=== PATIENT | male | born 1965 | race Caucasian/White ===

== ENCOUNTER → 2017-04-18 | Outpatient (CLI) | payer OTHER ==
[~2017-04-18] MED LIST: BISO5TAB3 PO; HYDR-5688 PO
== END | disposition home or self-care (01) ==
LOC: C.CPL 14:37
PROVIDERS: ATTEND Physician Assistant
DX: Z01.818 Encounter for other preprocedural examination (principal); S46.112A Strain of muscle, fascia and tendon of long head of biceps, left arm, initial encounter; X58.XXXA Exposure to other specified factors, initial encounter

== ENCOUNTER → 2017-04-19 | Day surgery (SDC) | payer OTHER ==
[2017-04-18 14:14] VITALS: Ht 180.3 cm; Wt 95.5 kg
--- NOTE | 2017-04-18 16:08 | HISTORY & PHYSICAL EXAMINATION ---
DATE OF ADMISSION: 04/19/2017 ATTENDING PHYSICIAN: Dr. Adama Lee. CHIEF COMPLAINT: Left elbow pain x10 days. 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 He was playing football approximately 10 days ago and was hit directly anterior of his left elbow. He had immediate pain and noticed a little misshapen mole in the anterior elbow. He did have swelling and ecchymosis as well. He has been having some difficulty bending the elbow and completely straightening it. He denies any numbness or tingling. He denies any weakness in the upper extremity, but he is limited in the ability to move his arm due to pain. He has been using ibuprofen for discomfort as well as 2 baby aspirins daily. Since the initial injury happened, he has had minimal improvement in his pain in the anterior aspect of his left elbow. He denies any previous injury. He does have a history of having 2 left wrist fractures in the past. X-rays were obtained and found no bony abnormality. An MRI was obtained and he was found to have a complete avulsion of the distal biceps from the radial tuberosity with retraction of approximately 4 cm. Due to these findings, surgical intervention was recommended. He has agreed to proceed with surgery. He is scheduled for a left distal biceps tendon repair by Dr. Lee on 04/19/2017 at the [facility] [place]. PAST MEDICAL HISTORY: Hypertension. CURRENT MEDICATIONS: Bisoprolol 5 mg daily. ALLERGIES: He has no known drug allergies. SOCIAL HISTORY: Denies any tobacco or drug use. 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 He does drink an occasional alcoholic drink on the weekends. PAST SURGICAL HISTORY: No previous surgeries. FAMILY HISTORY: Reviewed and noncontributory. REVIEW OF SYSTEMS: He denies any headaches, migraines, seizures, syncopal episodes, lightheadedness, dizziness. Denies any bleeding or clotting disorders. Denies any history of blood clots or pulmonary embolisms. Denies any frequent infections, poor wound healing, or recent hospitalizations. Denies any abdominal pain, nausea, vomiting, diarrhea or constipation. Denies any recent fevers, chills, cough, colds or stroke-like symptoms. Denies any chest pain, shortness of breath, difficulty breathing. Denies any urinary symptoms. PHYSICAL EXAMINATION: GENERAL: He is alert and oriented x3. He is in no acute distress. Well-dressed, well-nourished male, normal mood and affect. Height is 5 feet 11 inches, weight is 210 pounds. HEENT: Head is atraumatic, normocephalic. EYES: Extraocular movements intact. Pupils are equal, round and reactive to light. Sclerae are normal. EARS: Hearing is grossly normal. TMs are clear with normal light reflex. Ear canals are clear. NOSE: Nares are patent bilaterally, normal turbinates. THROAT: Oropharynx clear. Mucous membranes moist. Good dentition. Uvula midline. NECK: Supple, no lymphadenopathy, no carotid bruits. Trachea midline, nontender to palpation, full range of motion. LUNGS: Clear to auscultation bilaterally. No adventitious sounds. No accessory muscle use. Chest is nontender to palpation. HEART: Regular rate and rhythm, normal S1, S2, no murmurs appreciated. ABDOMEN: Soft, nontender, nondistended. Bowel sounds heard in all 4 quadrants. EXTREMITIES: Exam of his left elbow. There is no significant swelling. He does have tenderness with palpation in the antecubital fossa and it is hard to palpate the biceps tendon. He is missing about 10 degrees of terminal extension but has full flexion and minimal weakness on elbow flexion. Musculocutaneous median, radial and ulnar motor and sensory functions are intact. There is no bruising or swelling. No erythema. Radial pulse is 1+. Distal neurovascular is intact. RADIOLOGY IMAGES: X-rays of his left elbow taken and show no evidence of acute bony abnormality, fracture or dislocation, negative foot posterior fat pad sign. MRI of his left elbow indicates a complete avulsion of the distal biceps from the radial tuberosity with retraction of 4 cm. IMPRESSION: Left distal biceps tendon rupture. PLAN: The patient is educated about the injury, surgical intervention was recommended. He has agreed to proceed with surgery. He is scheduled for left distal biceps tendon repair with Dr. Lee in 04/19/2017 at the [facility]. Risks and complications of surgery were explained to the patient and include but are not limited to infection, pain, bleeding, scarring, nerve and blood vessel damage, wound problems, weakness, stiffness, incomplete relief of symptoms, blood clots, embolisms recurrence, heart attack, stroke and . All questions were answered, informed consent was obtained. He will obtain a preoperative EKG prior to surgery. He does not require any preoperative lab work or medical clearance prior to surgery. He was given a prescription for [place] for postoperative pain control. The [place] PDMP was checked with no issues identified. He was instructed on the usage of CHG cloth preoperatively. He will come back to physical therapy 4-5 days after surgery, at that time we might potentially put him in a hinged range of motion, elbow brace. He will also follow up with Dr. Lee 10-14 days after surgery for suture removal. All questions were answered. He knows to call with any further problems, questions, or concerns. CHANO
[~2017-04-19] VITALS: Ht 180.3 cm; Wt 95.5 kg
[~2017-04-19] MED LIST changes: +ATROPINE SULFATE 0.1 MG/ML 5ML SYR IV PRN; +BUPIVACAINE 0.5 % 5 MG/1 ML MPF 30ML VIAL ONE; +CEFAZOLIN 2000MG IV PUSH 15 ML IV SCH; +DEXAMETHASONE SOD INJ 4 MG/ML VIAL ONE; +EpHEDrine SULFATE INJ 50 MG/ML AMP IV PRN; +FENTANYL CITRATE INJ 50 MCG/1 ML 2 ML VIAL IV PRN; +FENTANYL CITRATE INJ 50 MCG/1 ML 2 ML VIAL ONE; +FLUMAZENIL 0.1 MG/1 ML 10 ML VIAL IV PRN; +HYDROmorphone INJ 2 MG/ML SYR/VIAL IV PRN; +LABETALOL HCL IV 5 MG/ML 20ML IV PRN; +LACTATED RINGER'S 1000ML 1,000 ML IV SCH; +LIDOCAINE HCL 2% 2 ML VIAL (20MG/ML) ONE; +LIDOCAINE/PRILOCAINE 2.5% EA CRM ONE; +MEPERIDINE HCL 25 MG/ML CARP IV PRN; +MIDAZOLAM HCL 1 MG/ML 2ML VIAL ONE; +MoRPHine SULFATE 2 MG/ML CARP IV PRN; +MoRPHine SULFATE 4 MG/ML 1 ML CARP\\VIAL IV PRN; +NALOXONE HCL 0.4 MG/1 ML VIAL/CARP IV PRN; +NURSING VERBAL MED ORDER ONE; +ONDANSETRON INJ 2 MG/ML 2 ML VIAL IV PRN; +ONDANSETRON INJ 2 MG/ML 2 ML VIAL ONE; +OXYCODONE/ACETAMINOPHEN 5-325 TAB PO PRN; +PHENYLEPHRINE 100MCG/ML 5ML SYR IV PRN; +PROPOFOL IV EMULSION 10 MG/ML 20 ML VIAL IV ONE; +ROPIVACAINE 0.5% 5 MG/ML 30 ML VIAL ONE; +SODIUM CHLORIDE 0.9% 1000ML 1,000 ML IV SCH
--- NOTE | 2017-04-19 09:45 | History & Physical Bridge Note ---
H&P Re-Evaluation Bridge Note: I have examined the patient, reviewed the History & Physical and in the interval since the performance of the History & Physical I have noted the following changes of clinical significance: No changes noted
--- NOTE | 2017-04-19 11:38 | [facility] Post Operative Brief Note ---
Immediate Operative Summary Operative Date Apr 19, 2017. Pre-Operative Diagnosis Left Distal Biceps Tear Post-Operative Diagnosis same as preop Procedure(s) Performed left distal biceps repair Surgeon Dr. Lee Wide Area Network Systems Administrator Surgeon(s) Alberta Guadalupe PA-C/Merle Castillo, MS3 [facility] Estimated Blood Loss 3 Findings Consistent with Post-Op Diagnosis Specimens none Drains None Anesthesia Type General Regional Complication(s) none Disposition Accompanied Pt To Recovery: no Disposition: Recovery Room / PACU
--- NOTE | 2017-04-19 12:13 | Discharge Instructions-SurgCtr ---
Discharge Instructions Date of Service Apr 19, 2017. Visit Reason for Visit: Left Distal Biceps Tear Discharge Discharge Diagnosis / Problem: left distal biceps tear Discharge Goals Goal(s): Decrease discomfort, Improve function, Increase independence Activity Recommendations Activity Limitations: per Instructions/Follow-up section Anesthesia . Post Anesthesia Instructions: If you have had General Anesthesia or IV Sedation: * Do not drive today. * Resume driving when surgeon permits. * Do not make important decisions or sign legal documents today. * Call surgeon for: 1. Temperature elevations greater than 101 degrees F. 2. Uncontrollable pain. 3. Excessive bleeding. 4. Persistent nausea and vomiting. 5. Medication intolerance (nausea, vomiting or rash). * For nausea and vomiting use only clear liquids such as: tea, soda, bouillon until nausea subsides, then gradually increase diet as tolerated. * If you have any concerns or questions, call your surgeon's office. If physician is unavailable and it is an emergency, call 911 or go to the nearest emergency room. . Instructions / Follow-Up Instructions / Follow-Up DIET: * Resume previous diet. MEDICATIONS: * Please take your prescriptions as instructed at your pre-op appointment and/ or see medication discharge instructions listed above. * If concerns develop, call your physician's office at . SPECIAL CARE INSTRUCTIONS: * Ice to right elbow as needed for pain and swelling * Elevate right upper extremity as needed for pain and swelling * Keep dressing clean, dry, intact. Keep splint on at all times. Wear sling left arm for comfort. * You are allowed to do range of motion of the wrist and fingers as tolerated. * No use of your left arm. No pushing or pulling or lifting. * Your surgical extremity may be discolored due to prepping agents used on the skin. A bluish-green tint is a normal variant and should not cause alarm. Call your doctor at [phone] if: * Temperature above 101 degrees * Pain not relieved by pain medicine ordered * There is increased drainage or redness from any incision * You have any unanswered questions, problems or concerns. FOLLOW UP VISIT: * If not already scheduled, please call the office at to schedule a follow-up appointment. * You have a physical therapy appointment on April 25, 2017 at 8:00 AM. * You have a follow-up with Dr. Lee on May 04, 2017 at 8:30 AM. Diet Recommendations Home Diet: no limitations, resume previous diet Procedures Procedures Performed: left distal biceps repair Pending Studies Studies pending at discharge: no Medical Emergencies . Who to Call and When: Medical Emergencies: If at any time you feel your situation is an emergency, please call 911 immediately. . Non-Emergent Contact Non-Emergency issues call your: Surgeon Call Non-Emergent contact if: temperature is above 101, your pain is not controlled, your pain is worsening, wound has increased drainage, wound has increased redness, wound has increased pain, you have any medication questions . . "Provider Documentation" section prepared by Krissy Guadalupe. . [place] Drug Monitoring Program Search Results: patient reviewed within database, no issues identified
--- NOTE | 2017-04-19 12:16 | [facility] Operative Report ---
Operative Report Operative Date Apr 19, 2017. Pre-Operative Diagnosis Left Distal Biceps Tear Post-Operative Diagnosis same as preop Procedure(s) Performed left distal biceps repair Surgeon Dr. Lee Seat Pack Inspector Surgeon(s) Alberta Guadalupe PA-C/Merle Castillo, MS3 [facility] Estimated Blood Loss 3 Specimens none Drains None Anesthesia Type General Regional Complication(s) none Disposition no Recovery Room / PACU Indications Patient is a 51-year-old male who is status post a left elbow injury approximately 10 days ago while playing football. Had immediate anterior left elbow pain. X-rays were taken and no abnormality was found. An MRI was obtained and confirmed a left biceps tendon rupture. Surgical intervention was discussed and he agreed to proceed with surgery. Risks and complications were explained to the patient and informed consent was obtained. Description of Procedure Patient was taken to the operating room and placed under general anesthesia. He was given a peripheral nerve block prior to surgery. He was given 2 g of IV Ancef for surgical prophylaxis. Timeout was performed. He was prepped and draped in routine sterile fashion. I was present for the entire case, please see Dr. Lee's operative report for further detail. Patient was awakened and transferred to the recovery room in stable condition. I attest to the content of the Intraoperative Record and any orders documented therein. Any exceptions are noted below.
--- NOTE | 2017-04-19 12:23 | Medical Student: [facility] ---
Immediate Operative Summary Operative Date Apr 19, 2017. Pre-Operative Diagnosis Distal Left Biceps Tendon Rupture Post-Operative Diagnosis Distal Left Biceps Tendon Rupture Procedure(s) Performed Repair of the distal left biceps tendon using suture anchors for reinsertion. Surgeon Dr. Lee Conveyor Man Surgeon(s) Brandy Guadalupe Estimated Blood Loss 3 ml Findings Ruptured distal biceps tendon Specimens None Anesthesia General Anesthesia with nerve block Complication(s) None Disposition Recovery Room / PACU
[2017-04-19 12:41] VITALS: TEMP 36.6
--- NOTE | 2017-04-19 12:50 | Anesthesia Progress Nt - [facility] ---
Anesthesia Post Op Note Date & Time Apr 19, 2017 at 12:50 Vital Signs Pain Intensity: 0 Vital Signs Past 12 Hours Date Time Temp Pulse Resp B/P (MAP) Pulse Ox O2 Delivery O2 Flow Rate FiO2 04/19/17 12:41 36.6 04/19/17 12:35 69 16 04/19/17 12:35 70 16 120/87 94 04/19/17 12:30 64 15 132/96 93 04/19/17 12:30 65 15 04/19/17 12:25 64 14 04/19/17 12:25 64 14 138/84 95 04/19/17 12:21 111/76 04/19/17 12:20 58 12 97 04/19/17 12:20 59 12 04/19/17 12:15 59 11 04/19/17 12:15 58 11 110/68 96 04/19/17 12:10 59 10 120/77 96 04/19/17 12:10 59 10 04/19/17 12:09 36. 59 12 119/77 96 Mask 6 04/19/17 12:09 119/77 04/19/17 10:05 0 04/19/17 10:04 0 04/19/17 10:04 0 04/19/17 09:56 122/81 04/19/17 09:56 122/81 04/19/17 09:55 66 12 122/81 (95) 95 Diffusion Mask 5 04/19/17 09:54 66 6 95 04/19/17 09:54 66 6 95 04/19/17 09:54 65 04/19/17 09:54 65 04/19/17 09:50 149/87 04/19/17 09:50 149/87 04/19/17 09:50 63 16 133/107 (116) 99 Diffusion Mask 5 04/19/17 09:49 65 04/19/17 09:49 65 04/19/17 09:49 63 0 133/107 99 04/19/17 09:49 63 0 133/107 99 04/19/17 09:44 56 04/19/17 09:44 56 0 97 04/19/17 09:39 14 04/19/17 09:39 58 14 04/19/17 08:47 36.9 61 16 124/100 (108) 97 Room Air Notes Mental Status: alert / awake / arousable, participated in evaluation Pt Amnestic to Procedure: Yes Nausea / Vomiting: adequately controlled Pain: adequately controlled Airway Patency, RR, SpO2: stable & adequate BP & HR: stable & adequate Hydration State: stable & adequate Anesthetic Complications: no major complications apparent
[2017-04-19 13:18] VITALS: BP 133/84; PULSE 60; O2SAT 96
--- NOTE | 2017-04-19 15:44 | [facility] Operative Report ---
Operative Report Operative Date Apr 19, 2017. Pre-Operative Diagnosis Left Distal Biceps Tear Post-Operative Diagnosis same as preop Procedure(s) Performed left distal biceps repair Surgeon Dr. Lee Certified Composites Technician Surgeon(s) Alberta Guadalupe PA-C/Merle Castillo, MS3 [facility] Estimated Blood Loss 3 Findings Complete rupture off of the bone of the left distal biceps tendon Specimens none Drains None Anesthesia Laryngeal mask with peripheral nerve block Complication(s) None Disposition Recovery Room / PACU Implants 2 2.9 mm juggernaut anchors Indications Patient's a 51-year-old male who was about a week and a half out from an injury to the left elbow. He has significant pain with findings consistent with a torn distal biceps tendon which is been confirmed by MRI. Treatment options risks and benefits have been discussed and he is elected to proceed with operative intervention. Description of Procedure Informed consent was obtained. The patient identified as Omid Flores. He identified the operative site as the left elbow which I marked with my initials. A preop surgical timeout was performed. A preop dose of IV antibiotics was given. He was taken to the operating room positioned supine on the OR table with left arm on a hand table. A tourniquet was applied to the left upper arm. The exam under anesthesia showed full movement of the elbow flexion extension and forearm rotation. The biceps tenodesis effect was absent in the distal biceps tendon was not as prominently palpable in the antecubital fossa as the contralateral side. There is no posterior lateral or medial sided laxity. The arm was prepped and draped from the fingertips to the tourniquet in the usual sterile fashion. DVT prophylaxis intraoperatively with foot pumps and postoperatively with early mobility. The limb was exsanguinated with the Esmarch. Tourniquet inflated 225 mmHg. An anterior longitudinal incision was made about 6-7 cm in length. This was made along the medial border of the brachial radialis. Blunt dissection was performed onto the subcutaneous tissues. The basilic vein was identified. Lateral to it the lateral antebrachial cutaneous nerve was identified. Dissection was performed on the medial side of the basilic vein. The recurrent vessels were identified and tied with 2-0 silk ties. Further blunt dissection was performed deeper into the wound and this revealed the bare tuberosity. There were some small strands of biceps intact proximally but the entire tendon otherwise was avulsed. The tendon was identified within its sheath which was opened. A tagging stitch was applied. Blunt dissection was performed to relieve any adhesions and the tendon easily reapproximated to the bone. The radial tuberosity was prepared using a curette rongeur and abraded with a osteotome. 2 2.9 mm jugular notch were inserted at the proximal and distal extents of the attachment. These were at about the one third castro of the width of the tendon. There are placed into the center of the bone with good deployment. Tension slide technique was utilized with one limb running proximal and the corresponding limb from the other anchor doing distal. I.e. the proximal anchor was run proximally in the distal anchor was run distally. Sutures were double loaded and the and used a suture was then passed in horizontal mattress fashion. Wound was copiously irrigated the elbow was held in full supination and 30 flexion. The tendon was reduced to the bone. Sutures were tensioned and then tied. This resulted in secure fixation. The arm could be fully pronated and the elbow could be fully extended. Tourniquet was let down after approximately 60 minutes of inflation. There is no significant bleeding copious irrigation was performed. The biceps tendon itself was not notably abnormal. The footprint appeared normal with some mild trauma to it. The skin was closed with 3-0 Vicryl and a 4 -0 Monocryl subcuticular stitch and skin glue. Patient is awake from anesthesia with the arm held in hyperflexed position he was then placed into a well-padded posterior splint with an anterior slab the arms in neutral rotation at 90 flexion the wrist was left free but included within the Shabbir wrap. Sling applied. Patient is awake from anesthesia without difficulty taken to the recovery room in stable condition. There were no specimens or complications. Counts were correct in the case. Blood loss was minimal. At the conclusion of the operation spoke patient's brother. I informed her my findings and gave detailed postoperative instructions. He will follow-up next week for rehabilitation according to the distal biceps tendon repair protocol I attest to the content of the Intraoperative Record and any orders documented therein. Any exceptions are noted below.
== END | disposition home or self-care (01) ==
LOC: X.SURG 08:22
PROVIDERS: ATTEND Physical Medicine & Rehabilitation Sports Medicine
DX: S46.292A Other injury of muscle, fascia and tendon of other parts of biceps, left arm, initial encounter (principal); W50.0XXA Accidental hit or strike by another person, initial encounter; Y93.61 Activity, american tackle football; I10 Essential (primary) hypertension